=== PATIENT | female | born 1950 | race Caucasian/White ===

== ENCOUNTER → 2017-08-23 | Outpatient (CLI) | payer OTHER, MEDICARE | LOC: BRMIMAGING 12:41 | PROVIDERS: ATTEND Physician Assistant Medical | DX: Z12.31 Encounter for screening mammogram for malignant neoplasm of breast (principal); Z13.820 Encounter for screening for osteoporosis; M85.88 Other specified disorders of bone density and structure, other site; Z85.3 Personal history of malignant neoplasm of breast | CPT/HCPCS: G0202 ==

== ENCOUNTER → 2017-08-31 | Outpatient (CLI) | payer OTHER, MEDICARE | LOC: BRMIMAGING 10:03 | PROVIDERS: ATTEND Physician Assistant Medical | DX: N63.11 Unspecified lump in the right breast, upper outer quadrant (principal) | CPT/HCPCS: 76641; G0206 ==